=== PATIENT | female | born 1985 | race Two or more races ===

== ENCOUNTER 2017-05-24 08:58 | Emergency (ER) | payer BC, OTHER ==
[~2017-05-24] VITALS: Ht 157.5 cm; Wt 52.0 kg
[2017-05-24] MEDS ORDERED: NO HOME MEDICATIONS (09:06)
[2017-05-24] MEDS ORDERED: METOCLOPRAMIDE HCL 10MG/2ML VIAL IV ONE (10:15)
[2017-05-24] MEDS ORDERED: ACETAMINOPHEN 325MG TABLET PO ONE (10:15)
[2017-05-24] MEDS ORDERED: DIPHENHYDRAMINE 50MG/ML VIAL IV ONE (10:15)
[2017-05-24] MEDS ORDERED: SODIUM CHLORIDE 0.9% 1,000 ML IV ONE (10:15)
[2017-05-24 12:44] LABS: CLARITY URINE TURBID (CLEAR); COLOR URINE YELLOW (YELLOW); GLUCOSE URINE NEGATIVE (NEGATIVE); KETONES URINE TRACE (NEGATIVE); LEUKOCYTE ESTERASE URINE 2+ (NEGATIVE); NITRITE URINE NEGATIVE (NEGATIVE); OCCULT BLOOD URINE NEGATIVE (NEGATIVE); PH URINE 7.5 (4.5-8.0); PROTEIN URINE NEGATIVE (NEGATIVE); SPECIFIC GRAVITY URINE 1.022 (1.005-1.030); UROBILINOGEN URINE 0.2 E.U./dL (0.2-1.0)
[2017-05-24 12:58] VITALS: BP 102/66
== END 2017-05-24 13:03 | disposition home or self-care (01) ==
LOC: ER 09:32
DX: O99.351 Diseases of the nervous system complicating pregnancy, first trimester (principal); G43.909 Migraine, unspecified, not intractable, without status migrainosus; O23.41 Unspecified infection of urinary tract in pregnancy, first trimester; Z3A.13 13 weeks gestation of pregnancy
CPT/HCPCS: 36415; 76801; 76817; 81001; 84702; 86850; 86900; 86901; 87086; 96361; 96374; 96375; 99285; J1200; J2765; J7030; Z7610

== ENCOUNTER 2018-09-02 07:35 | Emergency (ER) | payer MEDICAID, OTHER ==
[~2018-09-02] VITALS: Ht 157.5 cm; Wt 63.0 kg
[~2018-09-02 07:35] MED LIST: NO HOME MEDICATIONS
[2018-09-02] MEDS ORDERED: PENICILLIN G BENZATHINE 1,200,000 UNITS/2ML SYR IM ONE (11:45)
[2018-09-02] MEDS ORDERED: LIDOCAINE HCL 1% 20ML VIAL (Pyxis) INJ INFIL ONE (11:45)
[2018-09-02 12:19] VITALS: BP 115/74
== END 2018-09-02 12:21 | disposition home or self-care (01) ==
LOC: ER 07:35
DX: J02.0 Streptococcal pharyngitis (principal)
CPT/HCPCS: 81025; 87430; 96372; 99283; J0561